=== PATIENT | female | born 1950 | race Hispanic/Latino ===

== ENCOUNTER 2016-11-29 09:44 | Outpatient (CLI) | payer MEDICARE ==
--- NOTE | 2016-11-29 11:40 | Mammography Report ---
BILATERAL DIGITAL SCREENING MAMMOGRAM with CAD : 11/29/16 09:44:00 CLINICAL: Routine screening. COMPARISON:04/03/15, 03/01/14 and 03/19/11 FINDINGS: The breasts are heterogeneously dense, which may obscure small masses.A right retroareolar asymmetry on the CC view is unchanged. No mass, architectural distortion or suspicious calcifications. IMPRESSION: No mammographic evidence of malignancy. BI-RADS CATEGORY: 2 -- Benign RECOMMENDATION: Routine mammographic screening in one year. COMMENT: Patient follow-up letters are generated by our [employer] application.
--- NOTE | 2016-11-29 11:42 | Mammography Report ---
BONE DEXA:11/29/16 09:44:00 CLINICAL: Postmenopausal. No comparison. TECHNIQUE: Two site bone DEXA performed on an Hologic scanner. FINDINGS: The average BMD of the lumbar spine L1-L4 is 0.945g/cm squared with a T-score of -0.9 and a Z-score of +0.8. The average BMD of the left hip is 0.779g/cm squared with a T-score of -1.3 and a Z-score of -0.1. The femoral neck BMD is 0.65g/cm squared with a T score of -2.0 and a Z score of -0.5 IMPRESSION: 1. WHO classification: Normal with average fracture risk based on lumbar spine measurements. 2. WHO classification: Osteopenia with increased fracture risk based on left femoral neck measurements. RECOMMENDATION: Clinical correlation and routine screening. DEFINITIONS: BMD = Bone Mineral Density T-score = BMD related to mean peak bone mass of young adult (mean expressed in Standard Deviation) Z-score = Age matched BMD expressed in SD World Health Organization (WHO) Diagnostic Criteria Normal T-score > -1 SD Osteopenia T-score between -1 and -2.4 SD Osteoporosis T-score -2.5 SD or below NOTE: BMD is not the only risk factor for fracture. One should also consider factors such as the patient's age, risk of falling, previous osteoporotic fracture, family history of osteoporotic fractures, current smoker, and low body weight. Z-scores are not calculated if >80 years of age.
== END 2016-11-29 09:45 | disposition home or self-care (01) ==
LOC: SPVWC 09:44
PROVIDERS: ATTEND Internal Medicine
DX: Z12.31 Encounter for screening mammogram for malignant neoplasm of breast (principal); M85.88 Other specified disorders of bone density and structure, other site; Z78.0 Asymptomatic menopausal state
CPT/HCPCS: 77080; G0202; 77067

== ENCOUNTER 2017-09-30 07:52 | Outpatient (CLI) | payer MEDICARE ==
--- NOTE | 2017-09-30 16:34 | Nuclear Medicine Report ---
Parathyroid nuclear scan: Following ingestion of 99m sestamibi imaging over the head, neck, upper chest demonstrates activity in the thyroid and submandibular glands. The left thyroid lobe is more elongated than the right. On three-hour delay images focal residual activity is identified at the inferior left thyroid lobe. No other significant findings. Impression: The findings raise suspicion of an inferior parathyroid adenoma on the left.
== END 2017-09-30 07:53 | disposition home or self-care (01) ==
LOC: NM 07:52
PROVIDERS: ATTEND Internal Medicine
DX: E21.3 Hyperparathyroidism, unspecified (principal)
CPT/HCPCS: 78070; A9500

== ENCOUNTER 2018-07-10 08:47 | Outpatient (CLI) | payer MEDICARE ==
--- NOTE | 2018-07-10 16:14 | Mammography Report ---
BILATERAL DIGITAL SCREENING MAMMOGRAM with CAD: 07/10/18 08:47:00 CLINICAL: Routine screening. COMPARISON:08/01/16 and 04/03/15 FINDINGS: The breasts are heterogeneously dense, which may obscure small masses. No mass, architectural distortion or suspicious calcifications. IMPRESSION: No mammographic evidence of malignancy. BI-RADS CATEGORY: 1 - - Negative RECOMMENDATION: Routine mammographic screening in one year. COMMENT: Patient follow-up letters are generated by our [employer] application.
== END 2018-07-10 08:48 | disposition home or self-care (01) ==
LOC: SPVWC 08:47
PROVIDERS: ATTEND Internal Medicine
DX: Z12.31 Encounter for screening mammogram for malignant neoplasm of breast (principal)
CPT/HCPCS: 77067